=== PATIENT | female | born 1970 | race Caucasian/White ===

== ENCOUNTER 2022-09-25 11:43 | Observation (INO) | payer SELFPAY ==
[~2022-09-25] VITALS: Ht 157.5 cm; Wt 75.4 kg
--- NOTE | 2022-09-25 11:55 | NUR ---
PATIENT TO ROOM 4
[2022-09-25] MEDS ORDERED: LIPITOR10 M1 PO (12:37)
[2022-09-25] MEDS ORDERED: PAXIL30 MG PO (12:38)
[2022-09-25] MEDS ORDERED: METFORMIN500 M2 PO (12:39)
[2022-09-25 12:47] LABS: BASO% 0.7 % (0-3); EOS% 1.8 % (0-8); HEMATOCRIT 42.2 % (37.0-47.0); HEMOGLOBIN 14.3 g/dl (12.0-16.0); IMMATURE GRANULOCYTES 0.1 % (0.0-5.0); LYMPH% 41.6 % (15-41); MEAN CELL VOLUME 85.3 fL CALC (80.0-100.0); MEAN CORPUSCULAR HGB 28.9 pG CALC (26.0-32.0); MEAN CORPUSCULAR HGB CONC 33.9 g/dL CAL (32.0-36.0); MONO% 8.8 % (2-13); NEUT# 3.37 thou/uL (2.00-7.15); RED BLOOD COUNT 4.95 mill/uL (4.20-5.60); RED CELL DISTRI WIDTH 12.8 % (11.5-15.5)
[2022-09-25 12:57] LABS: ALBUMIN 4.3 g/dL (3.2-5.0); ALKALINE PHOSPHATASE 91 u/l (38-126); ANION GAP 14 (6-22 (CALC)); BILIRUBIN, TOTAL 0.5 mg/dL (0.02-1.3); BUN 12 mg/dL (7-17); BUN/CREATININE RATIO 31 (12-20 (CALC)); CARBON DIOXIDE 21 mmol/l (22-30); CHLORIDE 104 mmol/l (95-108); CREATININE 0.4 mg/dL (0.5-1.0); GFR FOR AFR.AMER. > 60 ML/MIN (>=60 (CALC)); GFR OTHER RACES > 60 ML/MIN (>=60 (CALC)); POTASSIUM 4.4 mmol/l (3.5-5.1); SGOT/AST 33 u/l (14-36); SODIUM 134 mmol/l (137-146); TOTAL PROTEIN 7.9 g/dL (6.3-8.2)
[2022-09-25 13:56] LABS: URINE BILIRUBIN - DIPSTICK NEGATIVE (NEGATIVE); URINE BLOOD DIPSTICK NEGATIVE (NEGATIVE); URINE COLOR YELLOW; URINE GLUCOSE - DIPSTICK >=1000 mg/dL (NEGATIVE); URINE KETONE NEGATIVE (NEGATIVE); URINE LEUK ESTERASE NEGATIVE (NEGATIVE); URINE PROTEIN - DIPSTICK NEGATIVE (NEG-TRACE); URINE UROBILINOGEN - DIPSTICK 0.2 E.U./dL (0.2)
[2022-09-25 14:04] LABS: URINE NITRITE - DIPSTICK NEGATIVE (Negative)
--- NOTE | 2022-09-25 14:46 | NUR ---
Reassessment of patient completed. No distress noted.
--- NOTE | 2022-09-25 15:00 | NUR ---
PT SITTING UP IN BED WAITING TO BE TRF, VOICE NO CONCERNS.
--- NOTE | 2022-09-25 15:26 | NUR ---
PT ARRIVED VIA WC WITH FACTORY ASSEMBLER. ADMISSION ASSESSMENT PERFORMED. ORIENTATED PT TO ROOM AND CALL [facility] SYSTEM. PT INDICATED UNDERSTANDING. FALL/SAFTEY PRECAUITON IN PLACE. CALL LIGHT WITHIN REACH
--- NOTE | 2022-09-25 15:35 | NUR ---
PT TRF IN STABLE CONDITION TO M/S ROOM 265, REPORT GIVEN TO BRYNN
[2022-09-25 15:41] VITALS: BP 116/97
--- NOTE | 2022-09-25 16:00 | NUR ---
PT RESTING IN BED WITH FAMILY MEMBER AT BEDSIDE. STATES NO PAIN. FALL/SAFTEY PRECAUTION IN PLACE. CALL LIGHT WITHIN REACH.
[2022-09-25] MEDS ORDERED: LISINOPRIL10 MG PO (16:01)
[2022-09-25 18:56] VITALS: BP 134/67
--- NOTE | 2022-09-25 20:00 | NUR ---
RECEIVED REPORT FROM DAY SHIFT RN. PT IS RESTING IN BED IN LOW SEMI-GALO'S POSITION, AWAKE, WATCHING TV. PT IS A&OX3. ABLE TO COMMUNICATE NEEDS WITH STAFF. ASSESSMENT COMPLETED. PT DENIES ANY PAIN OR DISCOMFORT AT THIS TIME. PT IS ON ROOM AIR, BREATHING EVEN AND UNLABORED. TELEMETRY IN PLACE, MONITORED BY ED. CALL LIGHT AND BEDSIDE TABLE WITHIN REACH, SAFETY PRECAUTIONS IN PLACE.
--- NOTE | 2022-09-26 00:20 | NUR ---
PT RESTING IN BED IN SUPINE POSITION, AWAKE. IV FLUIDS COMPLETED, FLUSHED IV. PT DENIES ANY PAIN OR DISCOMFORT AT THIS TIME. TELEMETRY IN [place]. CALL LIGTH AND BEDSIDE TABLE WITHIN REACH. SAFETY PRECAUTIONS IN PLACE.
[2022-09-26 00:26] VITALS: BP 136/59
[2022-09-26 03:41] LABS: ALBUMIN 3.7 g/dL (3.2-5.0); ALKALINE PHOSPHATASE 96 u/l (38-126); ANION GAP 8 (6-22 (CALC)); BUN 14 mg/dL (7-17); BUN/CREATININE RATIO 29 (12-20 (CALC)); CARBON DIOXIDE 25 mmol/l (22-30); CHLORIDE 106 mmol/l (95-108); CREATININE 0.5 mg/dL (0.5-1.0); GFR FOR AFR.AMER. > 60 ML/MIN (>=60 (CALC)); GFR OTHER RACES > 60 ML/MIN (>=60 (CALC)); HDL CHOLESTEROL 29 mg/dL (39.0-59.0); MAGNESIUM 1.8 mg/dL (1.6-2.3); POTASSIUM 4.1 mmol/l (3.5-5.1); SGOT/AST 22 u/l (14-36); SODIUM 135 mmol/l (137-146); TOTAL PROTEIN 6.8 g/dL (6.3-8.2)
[2022-09-26 03:48] LABS: CHOLESTEROL HDL RATIO 10.3 (<4.4 (CALC)); TOTAL CHOLESTEROL 299 mg/dl (0-199)
[2022-09-26 03:53] LABS: BILIRUBIN, TOTAL 0.2 mg/dL (0.02-1.3); TOTAL TRIGLYCERIDES 742 mg/dl (0-149)
--- NOTE | 2022-09-26 04:00 | NUR ---
PT RESTING IN BED IN LOW SEMI-GALO'S POSITION, EYES CLOSED. PT IS ON ROOM AIR, BREATHING EVEN AND UNLABORED. IV IS PATENT AND FLUSHES WELL. NO SIGNS OF PAIN OR DISTRESS NOTED AT THIS TIME. TELEMETRY IN PLACE, MONITORED BY ED. CALL LIGHT AND BEDSIDE TABLE WITHIN REACH, SAFETY PRECAUTIONS IN PLACE.
[2022-09-26 04:11] VITALS: BP 163/73
[2022-09-26 06:49] VITALS: BP 143/73
--- NOTE | 2022-09-26 07:35 | NUR ---
PT SITTING UP IN BED EATING BREAKFAST. NO APPARENT DISTRESS NOTED. PT DENIES ANY CP AT THIS TIME. NO CURRENT WANTS OR NEEDS. CALL LIGHT WITHIN REACH. WILL CONTINUE TO MONITOR.
--- NOTE | 2022-09-26 11:34 | NUR ---
DR. HENDERSON AT BEDSIDE.
[2022-09-26 12:06] VITALS: BP 130/78
[2022-09-26] MEDS ORDERED: HUMULIN 70/30 SC (13:55)
[2022-09-26 14:45] VITALS: BP 133/79
--- NOTE | 2022-09-26 15:15 | NUR ---
IV site discontinued, cath intact. No edema , no redness, voices no discomfort.
--- NOTE | 2022-09-26 15:20 | NUR ---
Discharge instructions given. Patient verbalizes understanding of same. Discharged in stable condition via Wheelchair to Home with family. All belongings sent with pt.
--- NOTE | 2022-09-26 16:26 | NUR ---
[facility] CALLED REGARDING INSULIN. CLARIFICATION FROM HENOK ESCAMILLA THAT INSULIN COULD BE CHANGED TO NOVOLIN 70/30 DUE TO VANESSA OF HUMALIN 70/30. VERBAL ORDERS GIVEN TO [facility] AT THIS TIME.
== END 2022-09-26 15:20 | disposition home or self-care (01) | DRG 639 ==
LOC: ED 11:43 → ED-I 13:50 → ED 14:05 → MS2 14:06
PROVIDERS: Nurse Practitioner; ADMIT Internal Medicine; ATTEND Internal Medicine
DX: E11.65 Type 2 diabetes mellitus with hyperglycemia (principal); R07.9 Chest pain, unspecified; I10 Essential (primary) hypertension; E78.5 Hyperlipidemia, unspecified; Z79.84 Long term (current) use of oral hypoglycemic drugs
CPT/HCPCS: G0378; J1650

== ENCOUNTER 2024-03-02 13:01 | Emergency (ER) | payer SELFPAY ==
[~2024-03-02] VITALS: Ht 157.5 cm; Wt 70.0 kg
[~2024-03-02 13:01] MED LIST: HUMULIN 70/30 SC; LIPITOR10 M1 PO; LISINOPRIL10 MG PO; METFORMIN500 M2 PO; PAXIL30 MG PO
[2024-03-02 13:10] VITALS: BP 161/72
[2024-03-02] MEDS ORDERED: KETOROLAC TROMETHAMINE 30 MG/ML SDV IM ONE (13:15)
[2024-03-02] MEDS ORDERED: ORPHENADRINE CITRATE 30 MG/ML AMP IM ONE (13:15)
[2024-03-02] MEDS ORDERED: CYCLOBENZAPRINE HCL 5 MG TAB PO ONE ×2 (13:25→14:55)
[2024-03-02 13:41] LABS: BASO% 0.4 % (0-3); EOS% 1.7 % (0-8); HEMATOCRIT 41.1 % (37.0-47.0); HEMOGLOBIN 13.8 g/dl (12.0-16.0); IMMATURE GRANULOCYTES 0.2 % (0.0-5.0); LYMPH% 35.4 % (15-41); MEAN CELL VOLUME 87.6 fL CALC (80.0-100.0); MEAN CORPUSCULAR HGB 29.4 pG CALC (26.0-32.0); MEAN CORPUSCULAR HGB CONC 33.6 g/dL CAL (32.0-36.0); MONO% 7.6 % (2-13); NEUT# 5.36 thou/uL (2.00-7.15); NEUT% 54.7 % (42-76); RED BLOOD COUNT 4.69 mill/uL (4.20-5.60); RED CELL DISTRI WIDTH 13.3 % (11.5-15.5)
[2024-03-02 13:53] LABS: ALBUMIN 4.1 g/dL (3.2-5.0); BILIRUBIN, TOTAL 0.5 mg/dL (0.02-1.3); CREATININE 0.5 mg/dL (0.5-1.0); TOTAL PROTEIN 7.5 g/dL (6.3-8.2)
[2024-03-02 13:56] VITALS: BP 163/76
[2024-03-02 14:00] VITALS: BP 145/63
[2024-03-02 14:30] VITALS: BP 183/79
[2024-03-02] MEDS ORDERED: HYDROcodone 5 MG/Acetaminophen 325 MG/COMBO PO ONE (14:30)
[2024-03-02] MEDS ORDERED: NAPROXEN500 MG PO (14:31)
[2024-03-02] MEDS ORDERED: METHOCARBAMOL500 MG PO (14:31)
[2024-03-02] MEDS ORDERED: TRAMADOL HYDROC50 M1 PO (14:31)
[2024-03-02 14:52] VITALS: BP 183/79
== END 2024-03-02 15:00 | disposition home or self-care (01) | DRG 605 ==
LOC: ED 13:01
PROVIDERS: Family Medicine
DX: S20.211A Contusion of right front wall of thorax, initial encounter (principal); I10 Essential (primary) hypertension; E11.9 Type 2 diabetes mellitus without complications; E78.5 Hyperlipidemia, unspecified; W51.XXXA Accidental striking against or bumped into by another person, initial encounter; Y93.83 Activity, rough housing and horseplay; Z72.0 Tobacco use

== ENCOUNTER 2024-07-24 20:47 | Emergency (ER) | payer SELFPAY ==
[~2024-07-24] VITALS: Ht 157.5 cm; Wt 71.0 kg
[~2024-07-24 20:47] MED LIST changes: +METHOCARBAMOL500 MG PO; +NAPROXEN500 MG PO; +TRAMADOL HYDROC50 M1 PO
[2024-07-24 21:28] VITALS: BP 162/134
[2024-07-24 21:31] VITALS: BP 172/70
[2024-07-24] MEDS ORDERED: HYDROmorphone HCL 2 MG/AMP IV ONE ×2 (21:35→23:25)
[2024-07-24] MEDS ORDERED: Pantoprazole Sodium 40 MG VIAL (Protonix) IV ONE (21:35)
[2024-07-24] MEDS ORDERED: ONDANSETRON HCl 4 MG/2 ML SDV IV ONE (21:35)
[2024-07-24] MEDS ORDERED: GLIPIZIDE5 M2 PO (21:59)
[2024-07-24] MEDS ORDERED: METFORMIN500 M2 PO (21:59)
[2024-07-24] MEDS ORDERED: SIMVASTATIN20 M1 PO (22:00)
[2024-07-24 22:01] LABS: BASO% 0.7 % (0-3); EOS% 1.8 % (0-8); HEMATOCRIT 39.9 % (37.0-47.0); HEMOGLOBIN 13.2 g/dl (12.0-16.0); IMMATURE GRANULOCYTES 0.1 % (0.0-5.0); LYMPH% 47.2 % (15-41); MEAN CELL VOLUME 90.1 fL CALC (80.0-100.0); MEAN CORPUSCULAR HGB 29.8 pG CALC (26.0-32.0); MEAN CORPUSCULAR HGB CONC 33.1 g/dL CAL (32.0-36.0); MONO% 9.2 % (2-13); NEUT# 3.5 thou/uL (2.00-7.15); RED BLOOD COUNT 4.43 mill/uL (4.20-5.60)
[2024-07-24] MEDS ORDERED: PAROXETINE10 MG PO (22:01)
[2024-07-24] MEDS ORDERED: [UNRECOGNIZED DRUG - OTHER] (22:02)
[2024-07-24 22:07] VITALS: BP 141/68
[2024-07-24 22:08] LABS: URINE BILIRUBIN - DIPSTICK Negative (NEGATIVE); URINE BLOOD DIPSTICK Negative (NEGATIVE); URINE COLOR Yellow; URINE GLUCOSE - DIPSTICK Negative (NEGATIVE); URINE KETONE Negative (NEGATIVE); URINE LEUK ESTERASE Negative (NEGATIVE); URINE NITRITE - DIPSTICK Negative (Negative); URINE PH 6.5 (4.5-8.0); URINE PROTEIN - DIPSTICK Negative (NEG-TRACE); URINE SPECIFIC GRAVITY 1.015; URINE UROBILINOGEN - DIPSTICK 0.2 E.U./dL (0.2)
[2024-07-24 22:15] LABS: ALBUMIN 4.5 g/dL (3.2-5.0); BILIRUBIN, TOTAL 0.5 mg/dL (0.02-1.3); CREATININE 0.6 mg/dL (0.5-1.0); POTASSIUM 3.7 mmol/l (3.5-5.1)
[2024-07-24 22:30] VITALS: BP 165/77
[2024-07-24 23:01] VITALS: BP 189/92
[2024-07-24] MEDS ORDERED: ALUM & MAG HYDROX-SIMETHICONE 30 ML PO ONE (23:20)
[2024-07-24] MEDS ORDERED: FAMOTIDINE 10MG/ML 2ML SDV IV ONE (23:20)
[2024-07-24 23:31] VITALS: BP 134/63
[2024-07-25] VITALS: BP 137/72
[2024-07-25] MEDS ORDERED: PROTONIX40 MG PO (00:09)
[2024-07-25 00:30] VITALS: BP 115/52
== END 2024-07-25 00:35 | disposition home or self-care (01) | DRG 392 ==
LOC: ED 20:47
PROVIDERS: Emergency Medicine
DX: R10.11 Right upper quadrant pain (principal); I10 Essential (primary) hypertension; E11.9 Type 2 diabetes mellitus without complications; E78.5 Hyperlipidemia, unspecified; Z79.84 Long term (current) use of oral hypoglycemic drugs; Z72.0 Tobacco use
CPT/HCPCS: J2470